=== PATIENT | female | born 1995 | race Two or more races ===

== ENCOUNTER 2017-06-23 15:15 | Emergency (ER) | payer MEDICAID ==
[~2017-06-23] VITALS: Ht 162.6 cm; Wt 57.7 kg
[~2017-06-23 15:15] MED LIST: METO-292 PO; PANT-47 PO
[2017-06-23 16:39] LABS: CLARITY,URINE CLOUDY (Clear); COLOR,URINE YELLOW (Yellow); GLUCOSE, URINE NEGATIVE (Neg); KETONES,URINE TRACE mg/dl (Neg); LEUKOCYTE ESTERASE ,URINE LARGE (Neg); NITRITES, URINE NEGATIVE (Neg); OCCULT BLOOD,URINE LARGE (Neg); PROTEIN,URINE 30 mg/dl (Neg); URINE HCG NEGATIVE (NEG); UROBILINOGEN,URINE 0.2 E.U/dL (0.2-1.0)
[2017-06-23 16:42] LABS: UA COLLECTION TYPE VOIDED
[2017-06-23] MEDS ORDERED: CEPH-571 PO (16:47)
[2017-06-23 16:50] LABS: BACTERIA,URINE FEW /HPF (Neg); RBC,URINE 20-50 /HPF (0-2); WBC,URINE TNTC /HPF (0-4)
[2017-06-23 16:51] LABS: MUCUS STRANDS NONE SEEN /LPF (Neg); SQUAMOUS EPITHELIAL CELL,UR MODERATE /LPF (FEW)
[2017-06-23 17:05] VITALS: BP 116/59
== END 2017-06-23 17:06 | disposition home or self-care (01) ==
LOC: ER 15:16
DX: N39.0 Urinary tract infection, site not specified (principal)
CPT/HCPCS: 81001; 81025; 87077; 87088; 87186; 99284

== ENCOUNTER 2025-01-22 12:29 | Emergency (ER) | payer MEDICAID ==
[~2025-01-22] VITALS: Ht 162.6 cm; Wt 65.0 kg
[~2025-01-22 12:29] MED LIST changes: +CEPH-571 PO
[2025-01-22 12:38] VITALS: TEMP 98.3
--- NOTE | 2025-01-22 15:26 | Physician Documentation ---
History of Present Illness ~ Chief Complaint: See Chief Complaint Stated Complaint: BREAST PAIN Time Seen by MD: 13:49 OK to notify your PCP?: Yes Primary Medical Doctor: FEDERICO SEGURA Source: patient Mode of Arrival: POV Exam Limitations: no limitations HPI 29-YEAR-OLD FEMALE WITH CHIEF COMPLAINT BILATERAL BREAST PAIN LEFT BREAST MORE THAN RIGHT. SHE DENIES ANY NIPPLE DISCHARGE, AXILLARY PAIN, RASHES ON HER BREASTS. SHE IS ON CONTROL AND STATES SHE TAKES HER CONTROL CONTINUOUSLY DOES NOT TAKE THE PLACEBO PACK DUE TO REALLY BAD MENSES. SHE HAS NOT MISSED ANY DOSAGES. NO RECENT PREGNANCIES. . Tetanus within 5 years?: Yes Medication Reconciliation Allergies: Coded Allergies: No Known Allergies (Unverified , 01/22/25) Scheduled Cephalexin (Keflex), 1 CAP PO Q8H Pantoprazole Sodium (PROTONIX tablet), 1 TABLET PO DAILY Scheduled PRN Metoclopramide HCl (Reglan), 1 TABLET PO TID PRN for nausea Past Medical History Past Medical History: No Pertinent History Past Surgical History: no surgical history Alcohol Use: None Drug Use: none Review of Systems All Other Systems at this time: Reviewed and Negative Physical Exam Vital Signs: Temperature: 98.3, Heart Rate: 87, Respiratory Rate: 18, BP: 113/66, Pulse Oximetry: 98, Weight: 65.000 General Appearance GENERAL APPEARANCE: ALERT, WD/WN. NAD. HEENT: NCAT, PERRL, EOMI. NECK: SUPPLE, TRACHEA MIDLINE. BREAST: TTP OVER LEFT AND RIGHT BREAST UPPER OUTER QUADRANT, NO MASSES, NO OVERLYING ERYTHEMA, NIPPLE DISCHARGE, AXILLARY LAD. LUNGS: BREATHING UNLABORED EXTREMITIES: NORMAL INSPECTION. NO EDEMA. SKIN: WARM/DRY, NORMAL COLOR NEUROLOGICAL: ALERT AND ORIENTED X4, NORMAL GAIT. PSYCHIATRIC: AFFECT CONGRUENT WITH MOOD. Progress Results/Orders Results/Orders Vital Signs 01/22/25 12:38 Temp 98.3 Pulse 87 Resp 18 B/P (MAP) 113/66 Pulse Ox 98 Medical Decision Making Differential Dx:Considerations: Include: Breast abscess, Breast engorgement, Breast mass, Cancer, Cellulitis, Fibrocystic disease, Lymphagitis, Mastitis Departure Time of Disposition: 15:24 Disposition: 01 HOME / SELF CARE / HOMELESS Impression: Primary Impression: Breast pain Condition: Stable Discharge Instructions: Fibrocystic Breast Changes, [id number] Additional Instructions: F/U WITH YOUR PCP ABOUT IMAGING STUDIES IF THIS PERSISTS. BREAST PAIN FROM FIBROCYSTIC BREAST SHOULD NOT LAST IT SHOULD RESOLVE WITHIN A WEEK OR TWO IT IS HORMONAL, TRIGGERED BY CAFFEINE AND OTHER THINGS, IF THIS PERSISTS YOU NEED IMAGING STUDIES. Referrals: NO PRIMARY CARE PROVIDER (PCP) Education Educated: Patient Educated regarding: diagnosis, treatment, need for follow up Signature Scribe Signature: X Attestation: BELLE FITZGERALD Jan 22, 2025 15:26
[2025-01-22 15:41] VITALS: BP 123/74; PULSE 67; RESP 18; O2SAT 98
== END 2025-01-22 15:57 | disposition home or self-care (01) ==
LOC: ER 12:30
DX: N64.4 Mastodynia (principal)
CPT/HCPCS: 99282